=== PATIENT | female | born 1955 | race Hispanic/Latino ===

== ENCOUNTER 2022-04-16 08:19 | Outpatient (AMB) | payer MEDICARE, MEDICAID, SELFPAY ==
--- NOTE | 2022-04-16 10:58 | RT.TREATMENT ---
Office Procedures RT Procedures Procedures EEG Extended Monitoring Awake/Drowsy: Yes
== END 2022-04-16 10:49 | disposition home or self-care (01) ==
LOC: HODRTX 08:19
PROVIDERS: PCP Nurse Practitioner Family; Referring Provider Nurse Practitioner Family; Visit Provider Psychiatry & Neurology Neurology
DX: R41.3 Other amnesia (principal)